=== PATIENT | male | born 1975 | race Caucasian/White ===

== ENCOUNTER 2022-08-04 07:43 | Emergency (ER) | payer BC, SELFPAY ==
--- NOTE | ~2022-08-04 | XR_ITS ---
EXAMINATION: XR shoulder RT min 2V INDICATION: Right shoulder pain TECHNIQUE: Four views of the right shoulder are submitted. COMPARISON: None FINDINGS: Normal alignment. No fracture. Glenohumeral and acromioclavicular joint spaces are normal. Soft tissues are unremarkable. There is a subtle lucent area in the posterior aspect of the fifth rib which appears mildly expansile. Differential includes healed fracture versus benign bone lesion such as fibrous dysplasia or aneurysmal bone cyst. IMPRESSION: 1. No acute osseous abnormality. Reviewed, dictated and finalized at location A.
[2022-08-04 07:44] VITALS: BP 136/83; PULSE 69; RESP 18; TEMP 36.4; O2SAT 99
[2022-08-04 07:52] VITALS: BP 139/92; RESP 18; O2SAT 98
[2022-08-04 07:59] VITALS: BP 139/92; PULSE 60; RESP 18; O2SAT 100
[2022-08-04 08:01] VITALS: BP 127/90; RESP 18; O2SAT 98
--- NOTE | 2022-08-04 08:24 | PC.NURSE ---
osman velez [phone]
--- NOTE | 2022-08-04 08:39 | ED.UPPEXIN ---
HPI - Extremity Injury (Upper) General Chief Complaint: Extremity Injury, Upper Stated Complaint: Shoulder and back pain Time Seen by Provider: 08/04/22 07:55 Source: patient and RN notes reviewed Mode of arrival: ambulatory Limitations: no limitations History of Present Illness HPI narrative: This is a 47 year old male who presents for evaluation of right shoulder pain. Patient states that he developed right shoulder pain 6 days ago . He has pain to right posterior shoulder that is worse with movement. He reports pain occasionally radiates down his right arm. He denies arm weakness. He states he occasionally has right thumb tingling. He has been taking aleve for his pain with some relief. He denies any injury. SHe denies abdominal pain or shortness of breath. Related Data Allergies Allergy/AdvReac Type Severity Reaction Status Date / Time No Known Allergies Allergy Verified 08/04/22 08:01 Review of Systems Constitutional: Constitutional: Denies weakness Cardiovascular: Cardiovascular: Denies syncope, Denies rapid heart rate, Denies irregular heart rhythm, Denies leg edema and Denies dyspnea Respiratory: Respiratory: Denies chest congestion, Denies hemoptysis, Denies excessive phlegm production and Denies dyspnea Gastrointestinal: Gastrointestinal: Denies abdominal pain, Denies hematochezia, Denies diarrhea and Denies vomiting Genitourinary: Genitourinary: Denies hematuria, Denies dysuria, Denies penile discharge and Denies testicular pain Musculoskeletal: Musculoskeletal: Reports arthralgias, Denies joint swelling, Denies loss of height and Denies muscle weakness Neurologic: Denies syncope, Denies focal weakness and Denies weakness PMFSH Past Medical History Medical History (Updated 08/04/22 @ 09:27 by Ondina Piedra MD) No significant medical problems Surgical History Surgical History (Updated 08/04/22 @ 08:44 by Ondina Piedra MD) No pertinent past surgical history Social History Social History (Updated 08/04/22 @ 08:44 by Ondina Piedra MD) Smoking status: Current every day smoker Exam Const: General: healthy appearing and no acute distress Nutritional Appearance: well nourished Orientation/consciousness: patient oriented x3 HENMT: Head: normal to inspection Eyes: EOM: EOMs intact bilaterally Neck: Neck: normal visual inspection, no lymphadenopathy and no meningeal signs Chest: Chest palpation & inspection: normal inspection of the chest Resp: Effort & Inspection: normal respiratory effort Auscultation: clear to auscultation bilaterally Cardio: Rate: regular rate Rhythm: regular rhythm Heart sounds: no murmurs Other: strong , equal bilateral radial pulse GI: GI Palp: Yes Soft to palpation, No Tenderness to palpation present (GI), No Guarding due to palpation present (GI) and No Rigid due to palpation Auscultation: normal bowel sounds Skin: General skin exam: normal color Rashes: no rashes Wounds: no wounds Neuro: General: patient oriented x3, moves all extremities and CN's II-XI intact bilaterally Extrem: Other: no shoulder swelling, no redness, pain with abduction of shoulder Psych: Mental Status: mental status grossly normal Affect: normal affect Attitude: cooperative Course Reevaluation(s) Reevaluation #1: I Discussed with patient xray shows no acute finding to his shoulder. 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 This is likely unrelated to his pain. I believe his pain is related shoulder strain, radicular pain. Date: 08/04/22 Time: 09:24 Vital Signs Vital signs: Vital Signs Temperature 97.6 F 08/04/22 07:44 Pulse Rate 69 08/04/22 07:44 Respiratory Rate 18 08/04/22 07:44 Blood Pressure 136/83 08/04/22 07:44 Pulse Oximetry 99 08/04/22 07:44 Oxygen Delivery Room Air 08/04/22 07:44 Temperature 97.6 F 08/04/22 07:44 Pulse Rate 66 08/04/22 09:36 Respiratory Ra
[2022-08-04 09:36] VITALS: BP 130/92; PULSE 66; RESP 18; O2SAT 99
== END 2022-08-04 09:35 | disposition home or self-care (01) ==
PROVIDERS: Emergency Provider General Practice; PCP Internal Medicine
DX: M25.512 Pain in left shoulder (principal); F17.200 Nicotine dependence, unspecified, uncomplicated
CPT/HCPCS: 73030; 99283

== ENCOUNTER 2022-12-10 14:14 | Emergency (ER) | payer OTHER, BC, SELFPAY ==
--- NOTE | ~2022-12-10 | CT_ITS ---
EXAMINATION: CTA neck DATE: 12/10/2022 15:35 INDICATION: TECHNIQUE: Computed tomographic angiography (CTA) of the neck was performed with 100 mL Omnipaque-350 intravenous contrast. Automated exposure control and iterative reconstruction technique were employe luis . The dose-length product was 611.51 mGy-cm. Maximum intensity projection and volume rendered 3D- reconstructions were created by the technologist on a separate workstation. COMPARISON: CT C-spine, same date. FINDINGS: NECK CTA: Normal arterial enhancement. No extravasation, occlusion, dissection, or aneurysm. There is 0% stenosis of the proximal right internal carotid artery relative to normal distal artery l umen diameter (NASCET criteria). There is 0% stenosis of the proximal left internal carotid artery re lative to normal distal artery lumen diameter. Bilateral retention cysts/polyps in the inferior maxillary sinuses. Normal thyroid. No lymphadenopath y. Paraseptal emphysematous change. IMPRESSION: Normal neck CTA findings. Reviewed, dictated and finalized at location K. IMPRESSION: Normal neck CTA findings.
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
[2022-12-10 14:20] VITALS: BP 136/74; PULSE 71; RESP 16; TEMP 36.4; O2SAT 99
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
[2022-12-10] MEDS: ACETAMINOPHEN 325 MG TABLET 650 MG PO (14:57)
[2022-12-10 15:00] LABS: Basophils Percent Auto 0.5 % (0.2-1.2); Eosinophils Absolute Auto 0.1 K/mm3 (0-0.3); Eosinophils Percent Auto 1.8 % (0-4.4); Hematocrit 41.8 % (42.0-52.0); Hemoglobin 14.2 g/dL (14.0-18.0); Immature Granulocyte Absolute 0.02 K/mm3 (0.00-0.031); Immature Granulocyte Percent A 0.3 % (0-0.5); Lymphocytes Absolute Auto 1.86 K/mm3 (0.9-3.2); Lymphocytes Percent Auto 24.1 % (18.3-44.2); Mean Corpuscular Volume 91.3 fl (80-100); Mean Platelet Volume 9.2 fl (7.4-10.4); Monocytes Absolute Auto 0.4 K/mm3 (0.1-0.6); Monocytes Percent Auto 5.3 % (2.6-8.5); Neutrophils Absolute Auto 5.3 K/mm3 (1.3-6.7); Platelet Count Result 266 k/mm3 (150-375); Red Blood Count 4.58 M/mm3 (4.6-6.20); Red Cell Distribution Width 12.7 % (11.5-14.5); White Blood Count 7.7 K/mm3 (4.5-10.0)
[2022-12-10 15:14] LABS: Alanine Aminotransferase 20 U/L (6-50); Albumin Level 4.4 g/dL (3.5-5.1); Alkaline Phosphatase 61 U/L (38-126); Anion Gap 7 mmol/L (8-16); Aspartate Amino Transferase 23 U/L (17-59); Bilirubin,Total 0.7 mg/dL (0.2-1.3); Blood Urea Nitrogen 14 mg/dL (9-20); Calcium 9.5 mg/dL (8.4-10.2); Carbon Dioxide 27 mmol/L (22-30); Chloride 104 mmol/L (98-107); Estimated CRCL calculation 111 ml/min; Estimated Glomerular Filt Rate > 60; Glucose 136 mg/dL (65-110); Potassium 3.8 mmol/L (3.4-5.0); Sodium 138 mmol/L (137-145)
== END 2022-12-10 16:19 | disposition home or self-care (01) ==
PROVIDERS: Emergency Provider Student in an Organized Health Care Education/Training Program; PCP Internal Medicine
DX: S16.1XXA Strain of muscle, fascia and tendon at neck level, initial encounter (principal); S39.012A Strain of muscle, fascia and tendon of lower back, initial encounter; S29.012A Strain of muscle and tendon of back wall of thorax, initial encounter; V43.53XA Car driver injured in collision with pick-up truck in traffic accident, initial encounter
CPT/HCPCS: 36415; 70450; 70498; 72125; 72128; 72131; 80053; 85025; 99284; A9270; Q9967